=== PATIENT | male | born 2000 | race Two or more races ===

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

== ENCOUNTER 2021-07-13 10:47 | Emergency (ER) | payer MEDICAID, OTHER ==
[2021-07-13] MEDS ORDERED: Bacitracin Oint 1 GM U/D Packet TOP ONE (11:08)
[2021-07-13] MEDS ORDERED: Acetaminophen 500 MG Tab PO ONE (11:10)
--- NOTE | 2021-07-13 11:13 | EDM.PDOC ---
ED HPI GENERAL MEDICAL PROBLEM - General Chief Complaint: Upper Extremity Injury/Pain Stated Complaint: CUT RIGHT HAND Time Seen by Provider: 07/13/21 11:09 Source of Information: Reports: Patient, Old Records, RN History Limitations: Reports: No Limitations - History of Present Illness INITIAL COMMENTS - FREE TEXT/NARRATIVE: 21 yo male here with an injury to the web space of his R hand. Tetanus is UTD. Here for eval. No tx prior to arrival. Onset: Today, Sudden Onset Date: 07/13/21 Duration: Minutes:, Constant Location: Reports: Upper Extremity, Right Quality: Reports: Ache Severity: Moderate Improves with: Reports: None Worsens with: Reports: None Context: Reports: Trauma Associated Symptoms: Reports: No Other Symptoms Treatments CALL OUT CLERK: Reports: Other (see below) (none) - Related Data Allergies Allergy/AdvReac Type Severity Reaction Status Date / Time No Known Allergies Allergy Verified 07/13/21 11:00 Home Meds: Home Meds Lisdexamfetamine Dimesylate [Vyvanse] 40 mg PO 04/12/20 [History] QUEtiapine [SEROquel] 25 mg PO 04/12/20 [History] Venlafaxine [Effexor XR] 150 mg PO 04/12/20 [History] ondansetron HCL [Zofran] 4 mg PO Q6H PRN 04/12/20 [History] Past Medical History - Past Health History Medical/Surgical History: Denies Medical/Surgical History HEENT History: Reports: Impaired Vision Social & Family History - Family History Family Medical History: No Pertinent Family History - Caffeine Use Caffeine Use: Reports: None Review of Systems - Review of Systems Review Of Systems: See Below Constitutional: Reports: No Symptoms Musculoskeletal: Reports: Hand Pain (right) Skin: Reports: Wound (right hand) Neurological: Reports: No Symptoms Psychiatric: Reports: No Symptoms ED EXAM, GENERAL - Physical Exam Exam: See Below Exam Limited By: No Limitations General Appearance: Alert, WD/WN, No Apparent Distress Extremities: Other (wound R hand, in web space between thumb and index finger) Neurological: Alert, Oriented, CN II-XII Intact, Normal Cognition, No Motor/Sensory Deficits Psychiatric: Normal Affect, Normal Mood Skin Exam: Warm, Dry, Normal Color, No Rash, Wound/Incision (wound web space of R hand. Several small wounds, none requiring repair. Minimal active bleeding. ). No: Intact Course - Vital Signs Text/Narrative:: Wound cleaned and dressed by nursing. Departure - Departure Time of Disposition: 11:35 Disposition: Home, Self-Care 01 Condition: Good Clinical Impression: Open wound of right hand Qualifiers: Encounter type: initial encounter Open wound type: laceration Foreign body presence: without foreign body Qualified Code(s): S61.411A - Laceration without foreign body of right hand, initial encounter - Discharge Information *PRESCRIPTION DRUG MONITORING PROGRAM REVIEWED*: Not Applicable *COPY OF PRESCRIPTION DRUG MONITORING REPORT IN PATIENT JONATHON: Not Applicable Additional Instructions: Clean wound twice a day with soap and water. Dry. Apply antibiotic ointment and a new dressing. Recheck for signs of infection. Acetaminophen as needed for pain relief.
[2021-07-13 12:14] VITALS: BP 125/83; PULSE 87
== END 2021-07-13 11:51 | disposition home or self-care (01) ==
LOC: FB.ED 10:47
DX: S61.411A Laceration without foreign body of right hand, initial encounter (principal); W23.0XXA Caught, crushed, jammed, or pinched between moving objects, initial encounter
CPT/HCPCS: 99283; A9270